=== PATIENT | female | born 1940 | race Caucasian/White ===

== ENCOUNTER 2017-09-01 18:49 | Inpatient (IN) | payer BC, OTHER ==
[2017-09-01 19:10] VITALS: BMI 18.5
--- NOTE | 2017-09-01 19:53 | PDOC ---
History of Present Illness - General Chief Complaint: Injury Stated Complaint: FALL Time Seen by Provider: 09/01/17 19:44 History Source: Patient Exam Limitations: No Limitations - History of Present Illness Initial Comments: 09/01/17 19:47 Patient is a 77-year-old female with history of hypertension, HLD, complaining of left hip pain since prior to presentation. Patient states she was bending over to put out her cigarette and slipped on ice on the sidewalk and twisted her left hip and then fell on the left hip. Since then she has been unable to walk. States she has 10 over 10 sharp pain with movement of the left leg. There was no head strike, no loss of consciousness. PMD: Dr. Camarena PMHX: as above PSOCHX: (+) cig GENERAL/CONSTITUTIONAL: [No fever or chills. No weakness. No weight change.] HEAD, EYES, EARS, NOSE AND THROAT: [No change in vision. No ear pain or discharge. No sore throat.] CARDIOVASCULAR: [No chest pain or shortness of breath.] RESPIRATORY: [No cough, wheezing, or hemoptysis.] GASTROINTESTINAL: [No nausea, vomiting, diarrhea or constipation. No rectal bleeding.] GENITOURINARY: [No dysuria, frequency, or change in urination.] MUSCULOSKELETAL: [No joint or muscle swelling or pain. No neck or back pain.] SKIN AND BREASTS: [No rash or easy bruising.] NEUROLOGIC: [No headache, vertigo, loss of consciousness, or loss of sensation, (+) tremors.] PSYCHIATRIC: [No depression or anxiety.] ENDOCRINE: [No increased thirst. No abnormal weight change.] HEMATOLOGIC/LYMPHATIC: [No anemia, easy bleeding, or history of blood clots.] ALLERGIC/IMMUNOLOGIC: [No hives or skin allergy. No latex allergy.] GENERAL: [The patient is awake, alert, and fully oriented, in no acute distress. ] HEAD: [Normal with no signs of trauma.] EYES: [Pupils equal, round and reactive to light, extraocular movements intact, sclera anicteric, conjunctiva clear.] ENT: [Ears normal, nares patent, oropharynx clear without exudates. Moist mucous membranes.] NECK: [Normal range of motion, supple without lymphadenopathy, JVD, or masses.] LUNGS: [Breath sounds equal, clear to auscultation bilaterally. No wheezes, and no crackles.] HEART: [Regular rate and rhythm, normal S1 and S2 without murmur, rub.] ABDOMEN: [Soft, nontender, normoactive bowel sounds. No guarding, no rebound. No masses.] EXTREMITIES: decreased range of motion left lower ext, rotated left lower ext, tenderness to left groin and hip, no edema. No clubbing or cyanosis. No cords, erythema, or tenderness.] NEUROLOGICAL: [Cranial nerves II through XII grossly intact. Normal speech, (+ ) tremors.] PSYCH: [Normal mood, normal affect.] SKIN: [Warm, Dry, normal turgor, no rashes or lesions noted.] 09/01/17 19:53 Past History - Past Medical History Allergies/Adverse Reactions: Allergies Allergy/AdvReac Type Severity Reaction Status Date / Time alcohol Allergy Verified 09/01/17 19:04 Antihistamines - Alkylamine Allergy Verified 09/01/17 19:04 Antihistamines - Ethanolamine Allergy Verified 09/01/17 19:04 Antihistamines - Allergy Verified 09/01/17 19:04 Ethylenediamine Antihistamines - Piperazine Allergy Verified 09/01/17 19:04 cranberry Allergy Verified 09/01/17 19:04 Home Medications: Ambulatory Orders Amlodipine Besylate 5 mg PO DAILY 09/01/17 Olmesartan/Hydrochlorothiazide [Benicar Hct 20-12.5MG Tab] 1 tab PO DAILY Rosuvastatin Calcium [Crestor] 5 mg PO HS 09/01/17 COPD: No HTN: Yes Hypercholesterolemia: Yes - Suicide/Smoking/Psychosocial Hx Smoking History: Current every day smoker Number of Cigarettes Smoked Daily: 10 Information on smoking cessation initiated: No *Physical Exam - Vital Signs Last Vital Signs Temp Pulse Resp BP Pulse Ox 98.2 F 63 16 122/57 97 09/01/17 19:00 09/01/17 19:00 09/01/17 19:00 09/01/17 19:00 09/01/17 19:00 ED Treatment Course - LABORATORY CBC & Chemistry Diagram: 09/01/17 20:58 09/01/17 20:58 - RADIOLOGY Radiology Studies Ordered: Category Date Time Status HIP & PELVIS-LEFT [RAD] Stat Radiology 09/01/17 19:45 Ordered Medical Decision Making - Medical Decision Making 09/01/17 19:51 Patient is a 77-year-old female with history of hypertension, HLD, complaining of left hip pain since prior to presentation. xray left hip and pelvis *DC/Admit/Observation/Transfer Diagnosis at time of Disposition: Hip fracture - Discharge Dispostion Condition at time of disposition: Stable Admit: Yes - Referrals - Patient Instructions - Post Discharge Activity
[2017-09-01 21:08] LABS: BASO % 0.8 % (0-2.0); EOS % 0.4 % (0-4.5); HEMATOCRIT 34.7 % (32.4-45.2); HEMOGLOBIN 11.4 GM/dL (10.7-15.3); LYMPH % 7.8 % (8-40); MCH 29.5 pg (25.7-33.7); MCHC 32.9 g/dl (32.0-36.0); MEAN CELL VOLUME 89.6 fl (80-96); MEAN PLT VOLUME 9.8 fl (7.5-11.1); MONO % 4.5 % (3.8-10.2); NEUT % 86.5 % (42.8-82.8); PLATELET COUNT 203 K/MM3 (134-434); RBC 3.88 M/mm3 (3.60-5.2); RDW 13.7 % (11.6-15.6); WHITE BLOOD COUNT 13.9 K/mm3 (4.0-10.0)
[2017-09-01 21:22] LABS: INR 0.93 (0.82-1.09); PROTHROMBIN TIME (PATIENT) 10.5 SEC (9.98-11.88)
[2017-09-01 21:43] LABS: ALBUMIN 3.5 g/dl (3.4-5.0); ANION GAP 7 (8-16); BLOOD UREA NITROGEN 36 mg/dL (7-18); CALCIUM 8.5 mg/dL (8.5-10.1); CHLORIDE 105 mmol/L (98-107); CO2 29 mmol/L (21-32); GLUCOSE,RANDOM 118 mg/dL (74-106); POTASSIUM 3.8 mmol/L (3.5-5.1); SGOT/AST 12 U/L (15-37); SGPT/ALT 17 U/L (12-78); SODIUM 141 mmol/L (136-145)
[2017-09-01 21:45] LABS: ALK PHOS 86 U/L (45-117); BILIRUBIN,TOTAL 0.4 mg/dL (0.2-1.0); CREATININE 1.2 mg/dL (0.55-1.02); TOT PROT 6.3 g/dl (6.4-8.2)
[2017-09-01] MEDS ORDERED: ACETAMINOPHEN 325 MG TABLET (FP) PO PRN (22:02)
[2017-09-01] MEDS ORDERED: ONDANSETRON 4 MG/2 ML VIAL IVPB PRN (22:02)
[2017-09-01] MEDS ORDERED: morphine CARPU-JECT 8 MG/1 ML DISP.SYRIN IVPUSH PRN (22:02)
[2017-09-02] MEDS ORDERED: VALSARTAN 80 MG TABLET (UD) PO SCH (10:00)
[2017-09-02] MEDS ORDERED: amLODIPine BESYLATE 2.5 MG TABLET (FP) PO SCH (10:00)
[2017-09-02] MEDS ORDERED: amLODIPine BESYLATE 5 MG TABLET (FP) ONE (10:09)
--- NOTE | 2017-09-02 10:17 | PN ---
Progress Note (short form) - Note Progress Note: Ortho consult dictated. Can proceed to OR when medically optimized. Time is available tonight. Will make NPO for now.
[2017-09-02 10:44] LABS: HEMATOCRIT 34.2 % (32.4-45.2); HEMOGLOBIN 10.9 GM/dL (10.7-15.3); MCH 28.6 pg (25.7-33.7); MCHC 31.7 g/dl (32.0-36.0); MEAN CELL VOLUME 90.3 fl (80-96); MEAN PLT VOLUME 10.1 fl (7.5-11.1); PLATELET COUNT 180 K/MM3 (134-434); RBC 3.79 M/mm3 (3.60-5.2); RDW 13.9 % (11.6-15.6)
[2017-09-02 10:48] LABS: ALBUMIN 3.5 g/dl (3.4-5.0); ALK PHOS 86 U/L (45-117); ANION GAP 11 (8-16); BILIRUBIN,TOTAL 0.8 mg/dL (0.2-1.0); BLOOD UREA NITROGEN 28 mg/dL (7-18); CALCIUM 9.3 mg/dL (8.5-10.1); CHLORIDE 106 mmol/L (98-107); CO2 26 mmol/L (21-32); CREATININE 1.1 mg/dL (0.55-1.02); GLUCOSE,RANDOM 115 mg/dL (74-106); POTASSIUM 4.3 mmol/L (3.5-5.1); SGOT/AST 10 U/L (15-37); SGPT/ALT 19 U/L (12-78); SODIUM 143 mmol/L (136-145); TOT PROT 6.5 g/dl (6.4-8.2)
--- NOTE | 2017-09-02 12:10 | CONS ---
DATE OF CONSULTATION/ DATE OF DICTATION: 09/01/2017 at 9:00 p.m. CHIEF COMPLAINT: Left hip pain. HISTORY OF PRESENT ILLNESS: This is a 77-year-old woman who was bending over and was out smoking a cigarette and lost her balance on some ice and fell onto her left hip. She has been unable to walk since then. She has pain in the hip area. She denies any pain elsewhere. She denies any radiating pain, numbness, or tingling. She denies any pain there prior to this injury. PAST MEDICAL HISTORY: Significant for hypertension, hyperlipidemia, COPD. MEDICATIONS: Reviewed as in chart. ALLERGIES: Include ANTIHISTAMINES. PHYSICAL EXAMINATION: General: This is an elderly female seen in the emergency room stretcher in no acute distress. She is alert and oriented x3. She has slightly rapid respirations. Vital signs: She is afebrile, and vital signs are stable. Extremities: Examination of the left lower extremity demonstrates shortening of external rotation. There is no tenderness throughout the knee. There is no tenderness about the ankle. The hip is tender to palpation. The foot demonstrates sensation intact to light touch. She has a 1+ DP pulse. EHL, FHL, tibialis anterior, gastric, and soleus are intact. IMAGING: Radiographs are reviewed demonstrating a displaced intertrochanteric hip fracture with moderate hip degenerative change. Radiographs of the elbow and shoulder are reviewed, as well. The shoulder views are somewhat limited due to the angulation. However no gross fracture is identified. ASSESSMENT: Left intertrochanteric hip fracture. PLAN: I reviewed todays findings with the patient and her coordinator of placement in the emergency department. We discussed that she had displaced fracture of the left hip. While she does have some underlying pulmonary disease, I do believe that the best option for her is surgical fixation. We discussed the option of nonoperative care which involves prolonged bed rest and possibly permanent loss of ambulatory function. We discussed the high likelihood of malunion or nonunion should she be treated nonoperatively. Alternatively, we discussed the recommended treatment, which is operative treatment. This would involve placement of a nail into the femur to stabilize the fracture. We discussed that the nail does not heal the fracture. Rather, it creates an environment where the fracture can heal properly. Surgery involves risks including bleeding, infection, neurovascular injury, need for further surgery, postoperative pain and stiffness, nonunion, malunion, hardware failure, or cutout. We discussed that patients with pulmonary disease are at risk of complications during the procedure. Medical complications could include heart attack, stroke, DVT, PE, respiratory failure, need for permanent ventilatory support, and . We discussed that there was no way to eliminate her pulmonary disease and mobilization is probably the best way to limit her chance of developing pulmonary complications as a result of this injury. We discussed the use of perioperative antibiotic and DVT prophylaxis. We discussed the rehabilitation protocol and likely need for a stay in the rehabilitation facility. I addressed all the patients questions. She voiced understanding and is likely to proceed. She will be scheduled for surgery as soon as she is medically optimized. NUPUR KUMAR M.D. [id number]
--- NOTE | 2017-09-02 13:10 | EKG ---
Test Reason : Blood Pressure : / mmHG Vent. Rate : 068 BPM Atrial Rate : 068 BPM P-R Int : 160 ms QRS Dur : 120 ms QT Int : 424 ms P-R-T Axes : 061 -32 048 degrees QTc Int : 450 ms POOR DATA QUALITY, INTERPRETATION MAY BE ADVERSELY AFFECTED SINUS RHYTHM WITH PREMATURE ATRIAL COMPLEXES LEFT AXIS DEVIATION RIGHT BUNDLE BRANCH BLOCK ABNORMAL ECG WHEN COMPARED WITH ECG OF 16-SEP-2010 17:52, PREMATURE ATRIAL COMPLEXES ARE NOW PRESENT RIGHT BUNDLE BRANCH BLOCK IS NOW PRESENT Confirmed by MD Guanaco, Lai ([id number]) on 09/02/2017 1:09:47 PM Referred By: Confirmed By:Lai Blanc MD
--- NOTE | 2017-09-02 15:31 | CON.CARD ---
Cardiology Consult (text) - Consultation Consultation Note: CC: pre-op clearance 77 yo smoker with h/o hypertension, HLD, who presents s/p mechanical fall noted to have fracture needing surgical repair. complaining of left hip pain post fall. mechanical fall, no dizziness. currently unable to walk. no prior h/o cad, chf, dm, ckd, tia/cva. can walk slowly up one flight of stairs (limited by oa). sedentary. no orthopnea, pnd, cp, sob, palps, dizziness, bleeding, transient neurologic sx' s. PMHX/pshx: per hpi PSOCHX: (+) cig fam hx: no premature cad ros: per hpi, no f/c/s, n/v/d, h/a, visual disturbances, rashes, cough, congestion. Ambulatory Orders Amlodipine Besylate 5 mg PO DAILY 09/01/17 Olmesartan/Hydrochlorothiazide [Benicar Hct 20-12.5MG Tab] 1 tab PO DAILY Rosuvastatin Calcium [Crestor] 5 mg PO HS 09/01/17 Current Medications Acetaminophen (Tylenol -) 650 mg PO Q6H PRN PRN Reason: FEVER OR PAIN Amlodipine Besylate (Norvasc -) 2.5 mg PO DAILY [facility] Last Admin: 09/02/17 10:07 Dose: 2.5 mg Morphine Sulfate (Morphine Sulfate) 2 mg IVPUSH Q6H PRN PRN Reason: PAIN Ondansetron HCl (Zofran Injection) 8 mg IVPB Q6H PRN PRN Reason: NAUSEA Valsartan (Diovan -) 80 mg PO DAILY [facility] Last Admin: 09/02/17 10:07 Dose: 80 mg Vital Signs - 24 hr 09/01/17 09/02/17 19:00 04:09 Temperature 98.2 F Pulse Rate 63 Pulse Rate [ 68 Right Apical] Respiratory 16 18 Rate Blood Pressure 122/57 Blood Pressure 125/62 [Left Arm] O2 Sat by Pulse 97 96 Oximetry (%) Intake & Output 08/31/17 09/01/17 09/02/17 09/03/17 07:59 07:59 07:59 07:59 Weight 95 lb nad, calm jvd flat, neck supple ctab, nl effort rrr nl s1, s2 no mrg. nd pmi + bs soft nt nd ext without e/c/c + dp/pt no carotid bruit aaox3 no jaundice, diaphoresis CBC, BMP 09/02/17 10:00 09/02/17 10:00 Laboratory Tests 09/01/17 09/01/17 09/02/17 20:58 20:58 10:00 INR 0.93 Creatinine 1.2 H Total Bilirubin 0.8 D AST 10 L ALT 19 Alkaline Phosphatase 86 Albumin 3.5 ekg: sr. lad. rbbb. diminished r wave voltages in lateral leads (similar on priors). carotid u/s: mod sized plaque at rt common carotid. small-mod plaque at left common carotid. no sig stenosis. per pmd, recent office echo wnl. 77 yo smoker with h/o hypertension, HLD, who presents s/p mechanical fall noted to have fracture needing surgical repair. pre-op clearance - Stable from CV perspective. No further testing needed prior to intervention. based on rcri and functional status, patient with estimated low-intermediate barbara-operative CV risk. patient counseled on risk. htn - stable, will monitor on current meds barbara-operatively. hl - con't home statin carotid atherosclerosis - con't statin. Would benefit from long-term asa therapy as outpatient. tobacco - cessation counseling.
--- NOTE | 2017-09-02 15:51 | HP ---
Admitting History and Physical - Primary Care Physician PCP: Britney Camarena - Admission Chief Complaint: S/P FALL LEFT HIP FRACTURE History of Present Illness: HISTORY OF HTN, LIPIDEMIA, OSTEOPOROSIS, TOBACCO SMOKER FOR OVER 50 YEARS. SLIPPED ON ICE AND FELL FELT IMMEDIATE PAIN LEFT SIDED. NO LOC. History Source: Patient Limitations to Obtaining History: No Limitations - Past Medical History Cardiovascular: Yes: HTN, Hyperlipdemia Musculoskeletal: Yes: Other - Smoking History Smoking history: Current every day smoker Aproximately how many cigarettes per day: 10 Home Medications - Allergies Allergies/Adverse Reactions: Allergies Allergy/AdvReac Type Severity Reaction Status Date / Time alcohol Allergy Verified 09/01/17 19:04 Antihistamines - Alkylamine Allergy Verified 09/01/17 19:04 Antihistamines - Ethanolamine Allergy Verified 09/01/17 19:04 Antihistamines - Allergy Verified 09/01/17 19:04 Ethylenediamine Antihistamines - Piperazine Allergy Verified 09/01/17 19:04 cranberry Allergy Verified 09/01/17 19:04 - Home Medications Home Medications: Ambulatory Orders Amlodipine Besylate 5 mg PO DAILY 09/01/17 Olmesartan/Hydrochlorothiazide [Benicar Hct 20-12.5MG Tab] 1 tab PO DAILY Rosuvastatin Calcium [Crestor] 5 mg PO HS 09/01/17 Review of Systems - Review of Systems Constitutional: reports: Weakness Eyes: reports: No Symptoms HENT: reports: No Symptoms Neck: reports: No Symptoms Cardiovascular: reports: No Symptoms Respiratory: reports: No Symptoms Gastrointestinal: reports: No Symptoms Genitourinary: reports: No Symptoms Musculoskeletal: reports: Extremity Pain Integumentary: reports: No Symptoms Neurological: reports: No Symptoms Endocrine: reports: No Symptoms Hematology/Lymphatic: reports: No Symptoms Psychiatric: reports: No Symptoms Physical Examination Vital Signs: Vital Signs Temperature 98.2 F 09/01/17 19:00 Pulse Rate 68 09/02/17 04:09 Respiratory Rate 18 09/02/17 04:09 Blood Pressure 125/62 09/02/17 04:09 O2 Sat by Pulse Oximetry (%) 96 09/02/17 04:09 Constitutional: Yes: Moderate Distress Eyes: Yes: WNL HENT: Yes: WNL Neck: Yes: WNL Cardiovascular: Yes: WNL Respiratory: Yes: WNL Gastrointestinal: Yes: WNL Renal/: Yes: WNL Musculoskeletal: Yes: Back Pain, Muscle Weakness Extremities: Yes: Deformity Edema: No Peripheral Pulses WNL: Yes Integumentary: Yes: WNL Wound/Incision: Yes: Clean/Dry Neurological: Yes: WNL ...Motor Strength: LLE Psychiatric: Yes: WNL Labs: CBC, BMP 09/02/17 10:00 09/02/17 10:00 Imaging - Results X-ray: Report Reviewed Problem List - Problems (1) Hypertension Code(s): I10 - ESSENTIAL (PRIMARY) HYPERTENSION Qualifiers: Hypertension type: essential hypertension Qualified Code(s): I10 - Essential (primary) hypertension (2) Lipidemia Code(s): E78.5 - HYPERLIPIDEMIA, UNSPECIFIED (3) Tobacco dependence due to cigarettes Code(s): F17.210 - NICOTINE DEPENDENCE, CIGARETTES, UNCOMPLICATED (4) Hip fracture Code(s): S72.009A - FRACTURE OF UNSP PART OF NECK OF UNSP FEMUR, INIT Qualifiers: Laterality: left Assessment/Plan MEDICALLY CLEARED FOR LEFT HIP GAMMA NAIL SURGERY REPAIR OF FRACTURE CAROTID DOPPLER NO SERIOUS ABNORMALITY ECHO 2017 NO ACUTE CHANGES IN MY OFFICE WITH NORMAL EF% AC SNF AND PT CARDIO EVAL APPRECIATED
[2017-09-02] MEDS ORDERED: BUPIVACAINE HCL/PF 0.5% (5MG/ML) 10 ML VIAL ONE (16:40)
[2017-09-02] MEDS ORDERED: MIDAZOLAM HCL 2 MG/2 ML SINGLE DOSE VIAL ONE (17:14)
[2017-09-02] MEDS ORDERED: ceFAZolin SODIUM 1 GM VIAL IVPB ONE (17:30)
[2017-09-02] MEDS ORDERED: ePHEDrine SULFATE 50 MG/1 ML AMPULE ONE (17:39)
[2017-09-02] MEDS ORDERED: oxyCODONE HCL 5 MG TABLET PO PRN (18:38)
[2017-09-02] MEDS ORDERED: ONDANSETRON 4 MG/2 ML VIAL IVPUSH PRN ×2 (18:38→18:59)
[2017-09-02] MEDS ORDERED: PROMETHAZINE HCL 25 MG/1 ML VIAL IVPUSH PRN (18:38)
[2017-09-02] MEDS ORDERED: LACTATED RINGERS SOLUTION 1,000 ML IV SCH (18:45)
[2017-09-02] MEDS ORDERED: morphine CARPU-JECT 10 MG/1 ML DISP.SYRIN IVPUSH PRN (18:59)
[2017-09-02] MEDS ORDERED: ONDANSETRON 4 MG/2 ML VIAL IVPB PRN (18:59)
[2017-09-02] MEDS ORDERED: CEFAZOLIN 1 GM PUSH 1 GM/10 ML DISP.SYRIN IVPUSH SCH (19:30)
--- NOTE | 2017-09-02 19:33 | OP ---
Operative Note - Note: Operative Date: 09/02/17 Pre-Operative Diagnosis: left IT fracture Operation: left hip intramedullary nail Implants: brenda gamma 3 [id number] with [id number] proximal lag screw and 32.5x5mm distal locking screw Post-Operative Diagnosis: Same as Pre-op Surgeon: Davion Krueger Supervisor Pipe Finishing: Royal Hall Anesthesiologist/RAMP AGENT: Jesus Grayson Anesthesia: Spinal Estimated Blood Loss (mls): 100 Operative Report Dictated: Yes
--- NOTE | 2017-09-02 20:33 | OP ---
DATE OF OPERATION: 09/02/2017 PREOPERATIVE DIAGNOSIS: Left intertrochanteric hip fracture. POSTOPERATIVE DIAGNOSIS: Left intertrochanteric hip fracture. PROCEDURE: Left hip intramedullary nail. SURGEON: Davion Krueger MD WEB DEVELOPER PROGRAMMER: Royal Hall, physician assistant account manager, whose skillful assistance was necessary for the safe and timely performance of this procedure. Mr. Hall was able to assist in limb positioning, retraction, assist in fracture reduction, as well as insertion of orthopedic procedure hardware. ANESTHESIA: Spinal. POSTOPERATIVE CONDITION: Stable. COMPLICATIONS: None. IMPLANTS: Edon Gamma nail 10 mm, right, 170, 125-degree, with a 85-mm proximal lag screw and a 32.5-mm x 5 distal locking screw. BLOOD LOSS: 100 mL. INDICATIONS: This is a pleasant woman who suffered a slip and fall. She was found to have an intertrochanteric hip fracture. Treatment options including nonoperative versus operative care were discussed. Operative risks were discussed in detail, including bleeding, infection, neurovascular injury, need for further surgery, postoperative pain and stiffness, nonunion, malunion, hardware failure or cutout. We discussed medical risks such as heart attack, stroke, DVT, PE, or . We reviewed the postoperative rehabilitation protocol. We discussed the use of perioperative DVT and antibiotic prophylaxis. I addressed all the patient's questions. She voiced understanding and elected to proceed. PROCEDURE PERFORMED: The patient was brought to the operating room where spinal anesthesia was administered. The patient was then placed onto the fracture table. We were careful to pad all the bony prominences. The left lower extremity was then prepped and draped in usual sterile fashion, after placing the leg into the position of traction, adduction and internal rotation. Preoperative fluoroscopy demonstrated satisfactory reduction. The patient was now prepped and draped. The usual time-out procedure was performed. A preoperative dose of antibiotics was given. At this point, an incision was planned out over the greater trochanter. A stab wound was made using a 10 blade. The guide wire was now placed down to the tip of the greater trochanter, which was fractured and allowed for easy advancement of the guide wire into the femoral canal. Guide wire placement was confirmed fluoroscopically in two planes. The incision was now opened up to allow entrance of the open reamer. The open reamer was now passed down to the level of the lesser trochanter. The guide wire and open reamer were now removed. The nail was then inserted into the femoral canal. The nail placement was confirmed fluoroscopically. The trocar was now inserted through the jig and an incision was made through the skin. The trocar was now inserted down to the level of the lateral femoral cortex. The guide wire was now inserted through the center of the femoral neck into the center of the femoral head. This was confirmed fluoroscopically in two planes. The guide wire was then measured and then overreamed to a depth of 85 mm. The proximal lag screw was now inserted. Again, position was confirmed fluoroscopically in two planes. The set screw was now inserted, its position checked and then backed off a quarter turn to allow for compression along the proximal lag screw. The proximal trocar was now removed. The distal trocar was inserted through the jig and again through a small incision in the skin. The trocar was again placed down to the bone. The distal locking screw was drilled in the static position. The screw was then measured and then inserted. At this point, the entire construct was examined again fluoroscopically. Both fracture reduction and hardware placement were satisfactory. The wounds were now irrigated. The deep tissue, including the fascia, was closed with 0 Vicryl. The subcutaneous tissue was closed using 2-0 Vicryl. The skin was closed using 3-0 nylon. Sterile dressings were placed. The patient was transferred to the recovery room in stable condition. Deanna [id number]
[2017-09-02] MEDS: CALCIUM 500MG/VIT-D 200 UNITS COMBO TABLET (FP) PO SCH (22:05)
[2017-09-02] MEDS: oxyCODONE HCL 5 MG TABLET PO PRN (22:30)
[2017-09-03] MEDS: CEFAZOLIN 1 GM PUSH 1 GM/10 ML DISP.SYRIN IVPUSH SCH ×2 (01:48→11:44)
[2017-09-03 08:52] LABS: HEMATOCRIT 25.3 % (32.4-45.2); HEMOGLOBIN 8.4 GM/dL (10.7-15.3); MCH 29.6 pg (25.7-33.7); MCHC 33.1 g/dl (32.0-36.0); MEAN CELL VOLUME 89.5 fl (80-96); MEAN PLT VOLUME 9.9 fl (7.5-11.1); PLATELET COUNT 137 K/MM3 (134-434); RBC 2.83 M/mm3 (3.60-5.2); RDW 13.7 % (11.6-15.6); WHITE BLOOD COUNT 10.2 K/mm3 (4.0-10.0)
[2017-09-03 09:17] LABS: ANION GAP 10 (8-16); BLOOD UREA NITROGEN 17 mg/dL (7-18); CALCIUM 8.8 mg/dL (8.5-10.1); CHLORIDE 103 mmol/L (98-107); CO2 29 mmol/L (21-32); GLUCOSE,RANDOM 111 mg/dL (74-106); MAGNESIUM 1.7 mg/dL (1.8-2.4); POTASSIUM 3.8 mmol/L (3.5-5.1); SODIUM 142 mmol/L (136-145)
[2017-09-03 09:19] LABS: CREATININE 0.8 mg/dL (0.55-1.02)
[2017-09-03] MEDS: amLODIPine BESYLATE 2.5 MG TABLET (FP) PO SCH (09:28)
[2017-09-03] MEDS: ACETAMINOPHEN 325 MG TABLET (FP) PO PRN ×2 (09:29→18:53)
[2017-09-03] MEDS: VALSARTAN 80 MG TABLET (UD) PO SCH (09:29)
[2017-09-03] MEDS: CALCIUM 500MG/VIT-D 200 UNITS COMBO TABLET (FP) PO SCH ×2 (09:29→21:19)
[2017-09-03] MEDS: oxyCODONE HCL 5 MG TABLET PO PRN (09:30)
--- NOTE | 2017-09-03 09:44 | PN ---
Progress Note (short form) - Note Progress Note: Anesthesia post op note POD#1, S/p left distal femur ORIF under Spinal. Pat seen and examined. VSS. No apparent post anesthesia complications. Signed off.
--- NOTE | 2017-09-03 10:07 | PN ---
Progress Note (short form) - Note Progress Note: Pt lying in bed. Pain controlled w meds. Last Vital Signs Temp Pulse Resp BP Pulse Ox 99.6 F 84 18 113/57 99 09/03/17 06:00 09/03/17 06:00 09/03/17 06:00 09/03/17 06:00 09/02/17 22:00 LLE dressings cdi calves soft nt ehl fhl ta g s intact sens int to LT 2+ dp Abnormal Lab Results 09/02/17 09/02/17 09/03/17 10:00 10:00 06:00 WBC 12.0 H 10.2 H RBC 2.83 L D Hgb 8.4 L D Hct 25.3 L D MCHC 31.7 L BUN 28 H D Creatinine 1.1 H Random Glucose 115 H Magnesium AST 10 L 09/03/17 06:00 WBC RBC Hgb Hct MCHC BUN Creatinine Random Glucose 111 H Magnesium 1.7 L AST A/p: POD 1 L femoral nail -pain control -dvt proph -oob/rehab -f/u CBC
--- NOTE | 2017-09-03 16:11 | PN ---
Progress Note, Physician Chief Complaint: awake alert pod#1 - Current Medication List Current Medications: Active Medications Acetaminophen (Tylenol -) 650 mg PO Q6H PRN PRN Reason: FEVER OR PAIN Last Admin: 09/03/17 09:29 Dose: 650 mg Amlodipine Besylate (Norvasc -) 2.5 mg PO DAILY [facility] Last Admin: 09/03/17 09:28 Dose: 2.5 mg Calcium Carbonate/Cholecalciferol (Os-Pedro 500+D -) 1 tab PO BID [facility] Last Admin: 09/03/17 09:29 Dose: 1 tab Enoxaparin Sodium (Lovenox -) 40 mg SQ DAILY [facility] Morphine Sulfate (Morphine Injection -) 2 mg IVPUSH Q6H PRN PRN Reason: PAIN Ondansetron HCl (Zofran Injection) 8 mg IVPB Q6H PRN PRN Reason: NAUSEA Ondansetron HCl (Zofran Injection) 4 mg IVPUSH Q6H PRN PRN Reason: NAUSEA AND/OR VOMITING Oxycodone HCl (Roxicodone -) 5 mg PO Q4H PRN PRN Reason: MILD PAIN Stop: 09/03/17 18:37 Last Admin: 09/03/17 09:30 Dose: 5 mg Valsartan (Diovan -) 80 mg PO DAILY [facility] Last Admin: 09/03/17 09:29 Dose: 80 mg - Objective Vital Signs: Vital Signs Temperature 97.9 F 09/03/17 14:44 Pulse Rate 98 H 09/03/17 14:44 Respiratory Rate 18 09/03/17 14:44 Blood Pressure 101/63 09/03/17 14:44 O2 Sat by Pulse Oximetry (%) 95 09/03/17 09:00 Constitutional: Yes: Mild Distress Eyes: Yes: WNL HENT: Yes: WNL Neck: Yes: WNL Cardiovascular: Yes: WNL Respiratory: Yes: Diminished, On Nasal O2 Gastrointestinal: Yes: WNL Genitourinary: Yes: WNL Musculoskeletal: Yes: Back Pain, Muscle Weakness Extremities: Yes: WNL Edema: No Peripheral Pulses WNL: Yes Integumentary: Yes: WNL Wound/Incision: Yes: Clean/Dry Neurological: Yes: WNL ...Motor Strength: LLE Psychiatric: Yes: WNL Labs: CBC, BMP 09/03/17 06:00 09/03/17 06:00 INR, PTT INR 0.93 (0.82-1.09) 09/01/17 20:58 Problem List - Problems (1) Hypertension Code(s): I10 - ESSENTIAL (PRIMARY) HYPERTENSION Qualifiers: Hypertension type: essential hypertension Qualified Code(s): I10 - Essential (primary) hypertension (2) Lipidemia Code(s): E78.5 - HYPERLIPIDEMIA, UNSPECIFIED (3) Tobacco dependence due to cigarettes Code(s): F17.210 - NICOTINE DEPENDENCE, CIGARETTES, UNCOMPLICATED (4) Hip fracture Code(s): S72.009A - FRACTURE OF UNSP PART OF NECK OF UNSP FEMUR, INIT Qualifiers: Laterality: left Assessment/Plan dvt prophylaxis pod#1 sitting up in chair PT yas [facility] for rehab d/w patient pain control
[2017-09-03] MEDS ORDERED: MAGNESIUM SULF 50% (8.12 MEQ/2 ML-1 GM VIAL) IVPB ONE (16:15)
[2017-09-03] MEDS: DOCUSATE SODIUM 100 MG CAPSULE (FP) PO SCH (17:15)
[2017-09-03] MEDS: FERROUS SO4 325 MG TABLET (FP) PO SCH (17:15)
[2017-09-03 18:35] LABS: HEMATOCRIT 26.1 % (32.4-45.2); HEMOGLOBIN 8.5 GM/dL (10.7-15.3); MCH 29.4 pg (25.7-33.7); MCHC 32.7 g/dl (32.0-36.0); MEAN PLT VOLUME 10.6 fl (7.5-11.1); PLATELET COUNT 154 K/MM3 (134-434); RDW 13.7 % (11.6-15.6); WHITE BLOOD COUNT 13.1 K/mm3 (4.0-10.0)
[2017-09-03] MEDS: ENOXAPARIN NA (PORCINE) 40 MG/0.4 ML DISP.SYRIN SQ SCH (19:50)
--- NOTE | 2017-09-03 21:40 | PN ---
Progress Note (short form) - Note Progress Note: CC: pre-op clearance Current Medications Acetaminophen (Tylenol -) 650 mg PO Q6H PRN PRN Reason: FEVER OR PAIN Last Admin: 09/03/17 18:53 Dose: 650 mg Amlodipine Besylate (Norvasc -) 2.5 mg PO DAILY [facility] Last Admin: 09/03/17 09:28 Dose: 2.5 mg Calcium Carbonate/Cholecalciferol (Os-Pedro 500+D -) 1 tab PO BID [facility] Last Admin: 09/03/17 21:19 Dose: 1 tab Docusate Sodium (Colace -) 100 mg PO DAILY [facility] Last Admin: 09/03/17 17:15 Dose: 100 mg Enoxaparin Sodium (Lovenox -) 40 mg SQ DAILY [facility] Last Admin: 09/03/17 19:50 Dose: 40 mg Ferrous Sulfate (Feosol -) 325 mg PO DAILY@0800 [facility] Last Admin: 09/03/17 17:15 Dose: 325 mg Morphine Sulfate (Morphine Injection -) 2 mg IVPUSH Q6H PRN PRN Reason: PAIN Ondansetron HCl (Zofran Injection) 8 mg IVPB Q6H PRN PRN Reason: NAUSEA Ondansetron HCl (Zofran Injection) 4 mg IVPUSH Q6H PRN PRN Reason: NAUSEA AND/OR VOMITING Valsartan (Diovan -) 80 mg PO DAILY [facility] Last Admin: 09/03/17 09:29 Dose: 80 mg Vital Signs - 24 hr 09/02/17 09/03/17 09/03/17 22:00 02:00 06:00 Temperature 98.8 F 98.7 F 99.6 F Pulse Rate 89 102 H 84 Respiratory 18 20 18 Rate Blood Pressure 136/89 113/57 O2 Sat by Pulse 99 Oximetry (%) 09/03/17 09/03/17 09/03/17 09:00 10:00 14:44 Temperature 99.4 F 97.9 F Pulse Rate 103 H 98 H Respiratory 18 18 18 Rate Blood Pressure 114/60 101/63 O2 Sat by Pulse 95 Oximetry (%) 09/03/17 19:56 Temperature 98.9 F Pulse Rate 87 Respiratory 19 Rate Blood Pressure 113/51 O2 Sat by Pulse Oximetry (%) Intake & Output 09/01/17 09/02/17 09/03/1717 07:59 07:59 07:59 07:59 Intake Total 2035 400 Output Total 450 Balance 1585 400 Weight 95 lb 95 lb nad, calm jvd flat, neck supple ctab, nl effort rrr nl s1, s2 no mrg. nd pmi + bs soft nt nd ext without e/c/c + dp/pt no carotid bruit aaox3 no jaundice, diaphoresis CBC, BMP 09/03/17 17:35 09/03/17 06:00 ekg: sr. lad. rbbb. diminished r wave voltages in lateral leads (similar on priors). carotid u/s: mod sized plaque at rt common carotid. small-mod plaque at left common carotid. no sig stenosis. per pmd, recent office echo wnl. 77 yo smoker with h/o hypertension, HLD, who presents s/p mechanical fall noted to have fracture needing surgical repair. pre-op clearance - Stable from CV perspective. No further testing needed prior to intervention. based on rcri and functional status, patient with estimated low-intermediate barbara-operative CV risk. patient counseled on risk. htn - stable, will monitor on current meds barbara-operatively. hl - con't home statin carotid atherosclerosis - con't statin. Would benefit from long-term asa therapy as outpatient. tobacco - cessation counseling.
[2017-09-04] MEDS: ACETAMINOPHEN 325 MG TABLET (FP) PO PRN ×2 (05:50→19:52)
[2017-09-04] MEDS ORDERED: ACETAMINOPHEN WITH CODEINE 300MG/30MG TABLET PO PRN (08:09)
[2017-09-04] MEDS: FERROUS SO4 325 MG TABLET (FP) PO SCH (08:13)
[2017-09-04 08:32] LABS: HEMATOCRIT 24.6 % (32.4-45.2); MCH 28.9 pg (25.7-33.7); MCHC 32.4 g/dl (32.0-36.0); MEAN CELL VOLUME 89.2 fl (80-96); MEAN PLT VOLUME 9.8 fl (7.5-11.1); PLATELET COUNT 142 K/MM3 (134-434); RBC 2.76 M/mm3 (3.60-5.2); RDW 13.5 % (11.6-15.6); WHITE BLOOD COUNT 12.1 K/mm3 (4.0-10.0)
[2017-09-04 08:55] LABS: ANION GAP 8 (8-16); BLOOD UREA NITROGEN 16 mg/dL (7-18); CALCIUM 8.8 mg/dL (8.5-10.1); CHLORIDE 100 mmol/L (98-107); CO2 31 mmol/L (21-32); CREATININE 0.9 mg/dL (0.55-1.02); GLUCOSE,RANDOM 102 mg/dL (74-106); MAGNESIUM 2.3 mg/dL (1.8-2.4); POTASSIUM 4.3 mmol/L (3.5-5.1); SODIUM 139 mmol/L (136-145)
[2017-09-04] MEDS: amLODIPine BESYLATE 2.5 MG TABLET (FP) PO SCH (10:11)
[2017-09-04] MEDS: ENOXAPARIN NA (PORCINE) 40 MG/0.4 ML DISP.SYRIN SQ SCH (10:12)
[2017-09-04] MEDS: VALSARTAN 80 MG TABLET (UD) PO SCH (10:12)
[2017-09-04] MEDS: DOCUSATE SODIUM 100 MG CAPSULE (FP) PO SCH (10:12)
[2017-09-04] MEDS: CALCIUM 500MG/VIT-D 200 UNITS COMBO TABLET (FP) PO SCH ×2 (10:12→21:34)
--- NOTE | 2017-09-04 10:20 | PN ---
Progress Note (short form) - Note Progress Note: ID Consult dictated POD #2 gamma nail L femur fracture Low grade temp/ leukocytosis Await cultures OOB. Incentive spirometry Observe off antibiotics
--- NOTE | 2017-09-04 11:20 | PN ---
Progress Note, Physician Chief Complaint: AWAKE ALERT STILL IN PAIN - Current Medication List Current Medications: Active Medications Acetaminophen (Tylenol -) 650 mg PO Q6H PRN PRN Reason: FEVER OR PAIN Last Admin: 09/04/17 05:50 Dose: 650 mg Acetaminophen/Codeine Phosphate (Tylenol # 3 -) 1 tab PO Q4H PRN PRN Reason: FEVER OR PAIN Amlodipine Besylate (Norvasc -) 2.5 mg PO DAILY [facility] Last Admin: 09/04/17 10:11 Dose: Not Given Calcium Carbonate/Cholecalciferol (Os-Pedro 500+D -) 1 tab PO BID [facility] Last Admin: 09/04/17 10:12 Dose: 1 tab Docusate Sodium (Colace -) 100 mg PO DAILY [facility] Last Admin: 09/04/17 10:12 Dose: 100 mg Enoxaparin Sodium (Lovenox -) 40 mg SQ DAILY [facility] Last Admin: 09/04/17 10:12 Dose: 40 mg Ferrous Sulfate (Feosol -) 325 mg PO DAILY@0800 [facility] Last Admin: 09/04/17 08:13 Dose: 325 mg Ondansetron HCl (Zofran Injection) 8 mg IVPB Q6H PRN PRN Reason: NAUSEA Ondansetron HCl (Zofran Injection) 4 mg IVPUSH Q6H PRN PRN Reason: NAUSEA AND/OR VOMITING Valsartan (Diovan -) 80 mg PO DAILY [facility] Last Admin: 09/04/17 10:12 Dose: 80 mg - Objective Vital Signs: Vital Signs Temperature 100.1 F H 09/04/17 05:41 Pulse Rate 86 09/04/17 05:41 Respiratory Rate 18 09/04/17 05:41 Blood Pressure 115/55 09/04/17 05:41 O2 Sat by Pulse Oximetry (%) 95 09/03/17 09:00 Constitutional: Yes: Mild Distress Eyes: Yes: WNL HENT: Yes: WNL Neck: Yes: WNL Cardiovascular: Yes: WNL Respiratory: Yes: WNL Gastrointestinal: Yes: WNL Genitourinary: Yes: WNL Musculoskeletal: Yes: Back Pain, Muscle Weakness Extremities: Yes: Other Edema: No Peripheral Pulses WNL: Yes Integumentary: Yes: WNL Wound/Incision: Yes: Dressing Dry and Intact Neurological: Yes: WNL ...Motor Strength: LLE Psychiatric: Yes: WNL Labs: CBC, BMP 09/04/17 08:05 09/04/17 08:05 INR, PTT INR 0.93 (0.82-1.09) 09/01/17 20:58 Problem List - Problems (1) Hypertension Code(s): I10 - ESSENTIAL (PRIMARY) HYPERTENSION Qualifiers: Hypertension type: essential hypertension Qualified Code(s): I10 - Essential (primary) hypertension (2) Lipidemia Code(s): E78.5 - HYPERLIPIDEMIA, UNSPECIFIED (3) Tobacco dependence due to cigarettes Code(s): F17.210 - NICOTINE DEPENDENCE, CIGARETTES, UNCOMPLICATED (4) Hip fracture Code(s): S72.009A - FRACTURE OF UNSP PART OF NECK OF UNSP FEMUR, INIT Qualifiers: Laterality: left Assessment/Plan TRANSFUSE 1 UNIT PRBC MONITOR H/H POSTOP FEVER CULTURES AND FLU SWAB SENT ID CONSULTED dvt prophylaxis pod#2 sitting up in chair PT yas [facility] for rehab d/w patient pain control
--- NOTE | 2017-09-04 11:51 | CONS ---
INFECTIOUS DISEASE CONSULTATION DATE OF CONSULTATION: DATE OF DICTATION: 09/04/2017 The patient is a 77-year-old female evaluated for postoperative fever. The patient fell, after slipping on snow, on . She sustained trauma to her left hip. She was found to have a left intertrochanteric fracture. She was taken to the operating room on September 02, 2017, where a gamma nail repair was performed. She is now postop day number 2. This morning, she was noted to have fever of 100.1. In addition, her white blood cell count has been elevated. Cultures have been obtained. At the present time, she has no complaints of hip pain at rest. She does have pain with movement and with weight-bearing. She has had a chronic cough. She is a smoker. She denies any chest pain or shortness of breath. No complaints of dysuria, hematuria, vomiting, or diarrhea. PAST MEDICAL HISTORY: Positive for hypertension, hyperlipidemia, chronic obstructive pulmonary disease. ALLERGIES: ANTIHISTAMINES. MEDICATIONS: Include Norvasc, Benicar, Crestor. SOCIAL HISTORY: She is a current smoker. No history of alcohol abuse. SYSTEMS REVIEW: Neurologic: No loss of consciousness, seizure activity, focal weakness. Cardiac: Negative chest pain or palpitations. Respiratory: Positive for cough. Gastrointestinal: Negative vomiting or diarrhea. Genitourinary: Negative for urinary tract infection. LABORATORY DATA: White count 12.1, hematocrit 24.6, platelet count 142. BUN 16, creatinine 0.9. Blood cultures pending. Urinalysis and urine culture pending. Chest x-ray: No acute infiltrate. PHYSICAL EXAMINATION: General: On exam, she is awake and alert. She is supine in bed in no acute distress. Not acutely toxic appearing. Vital signs: Temperature 100.1, blood pressure 115/55, pulse 86 and regular, respirations 18 per minute. Eyes: Sclerae are anicteric. Heart: Heart sounds S1, S2. Lungs: Clear bilaterally. No rhonchi, rales, or wheezing. Abdomen: Soft. No tenderness elicited. No mass, rebound, or rigidity. Extremities: Edema 1+. A surgical dressing is in place on the left hip. IMPRESSION: 1. Postoperative day number 2, left femur fracture repair. 2. Low-grade fever and leukocytosis. Await culture results. Obtain urinalysis and urine culture. Observe off antibiotic therapy. Out of bed to chair. Incentive spirometry. Thank you for the kind referral. JAYSON YU M.D. IRVIN/[id number]
[2017-09-04 12:44] LABS: URINE APPEARANCE SLCLOUDY; URINE BILIRUBIN NEGATIVE (NEGATIVE); URINE BLOOD 3+ (NEGATIVE); URINE COLOR LTYELLOW; URINE GLUCOSE (UA) NEGATIVE (NEGATIVE); URINE KETONE NEGATIVE (NEGATIVE); URINE LEUK ESTERASE NEGATIVE (NEGATIVE); URINE NITRITE NEGATIVE (NEGATIVE); URINE PROTEIN NEGATIVE (NEGATIVE); URINE UROBILINOGEN NEGATIVE mg/dL (0.2-1.0)
[2017-09-04 14:31] LABS: EPI CELLS RARE /HPF (FEW); URINE MUCUS RARE
--- NOTE | 2017-09-04 15:23 | PN ---
Progress Note (short form) - Note Progress Note: Pt lying in bed. Some pain at rest, moreso with ambulation. Last Vital Signs Temp Pulse Resp BP Pulse Ox 99.1 F 93 H 18 86/53 95 09/04/17 14:30 09/04/17 14:30 09/04/17 05:41 09/04/17 14:30 09/03/17 09:00 LLE dressings cdi calves soft nt ehl fhl ta g s intact sens int to LT 2+ dp Abnormal Lab Results 09/03/17 09/04/17 09/04/17 17:35 08:05 08:30 WBC 13.1 H 12.1 H RBC 2.90 L 2.76 L Hgb 8.5 L 8.0 L Hct 26.1 L 24.6 L Urine Blood 3+ H Crossmatch 09/04/17 12:16 WBC RBC Hgb Hct Urine Blood Crossmatch See Detail A/p: POD 2 L femoral nail -pain control, minimize narcotics as much as possible -dvt proph -oob/rehab -f/u CBC after transfusion -pt shows no clinical signs of infection, low grade temp likely secondary to post op inflammation
[2017-09-04] MEDS ORDERED: ENOXAPARIN NA (PORCINE) 40 MG/0.4 ML DISP.SYRIN SQ SCH (19:00)
--- NOTE | 2017-09-04 23:53 | PN ---
Progress Note (short form) - Note Progress Note: Current Medications Acetaminophen (Tylenol -) 650 mg PO Q6H PRN PRN Reason: FEVER OR PAIN Last Admin: 09/04/17 19:52 Dose: 650 mg Acetaminophen/Codeine Phosphate (Tylenol # 3 -) 1 tab PO Q4H PRN PRN Reason: FEVER OR PAIN Amlodipine Besylate (Norvasc -) 2.5 mg PO DAILY [facility] Last Admin: 09/04/17 10:11 Dose: Not Given Calcium Carbonate/Cholecalciferol (Os-Pedro 500+D -) 1 tab PO BID [facility] Last Admin: 09/04/17 21:34 Dose: 1 tab Docusate Sodium (Colace -) 100 mg PO DAILY [facility] Last Admin: 09/04/17 10:12 Dose: 100 mg Enoxaparin Sodium (Lovenox -) 40 mg SQ DAILY [facility] Last Admin: 09/04/17 10:12 Dose: 40 mg Ferrous Sulfate (Feosol -) 325 mg PO DAILY@0800 [facility] Last Admin: 09/04/17 08:13 Dose: 325 mg Ondansetron HCl (Zofran Injection) 8 mg IVPB Q6H PRN PRN Reason: NAUSEA Ondansetron HCl (Zofran Injection) 4 mg IVPUSH Q6H PRN PRN Reason: NAUSEA AND/OR VOMITING Valsartan (Diovan -) 80 mg PO DAILY [facility] Last Admin: 09/04/17 10:12 Dose: 80 mg Vital Signs - 24 hr 09/04/17 09/04/17 09/04/17 02:00 05:41 14:11 Temperature 99.2 F 100.1 F H 98.8 F Pulse Rate 79 86 86 Respiratory 18 18 Rate Blood Pressure 115/55 111/53 09/04/17 09/04/17 09/04/17 14:30 19:12 20:11 Temperature 99.1 F 98.4 F 98.6 F Pulse Rate 93 H 88 78 Respiratory 20 20 Rate Blood Pressure 86/53 113/59 Intake & Output 09/02/17 09/03/17 09/04/17 09/05/17 07:59 07:59 07:59 07:59 Intake Total 2035 1000 1510 Output Total 450 Balance 1585 1000 1510 Weight 95 lb 95 lb CBC, BMP 09/04/17 08:05 09/04/17 08:05
[2017-09-05 09:03] LABS: HEMATOCRIT 28.3 % (32.4-45.2); HEMOGLOBIN 9.4 GM/dL (10.7-15.3); MCH 29.5 pg (25.7-33.7); MCHC 33.3 g/dl (32.0-36.0); MEAN CELL VOLUME 88.4 fl (80-96); MEAN PLT VOLUME 10.1 fl (7.5-11.1); PLATELET COUNT 160 K/MM3 (134-434); RDW 13.4 % (11.6-15.6); WHITE BLOOD COUNT 9.7 K/mm3 (4.0-10.0)
[2017-09-05] MEDS: VALSARTAN 80 MG TABLET (UD) PO SCH (10:09)
[2017-09-05] MEDS: amLODIPine BESYLATE 2.5 MG TABLET (FP) PO SCH (10:09)
[2017-09-05] MEDS: DOCUSATE SODIUM 100 MG CAPSULE (FP) PO SCH (10:09)
[2017-09-05] MEDS: CALCIUM 500MG/VIT-D 200 UNITS COMBO TABLET (FP) PO SCH (10:09)
[2017-09-05] MEDS: FERROUS SO4 325 MG TABLET (FP) PO SCH (10:09)
[2017-09-05] MEDS: ENOXAPARIN NA (PORCINE) 40 MG/0.4 ML DISP.SYRIN SQ SCH (10:10)
--- NOTE | 2017-09-05 10:54 | DS ---
Physical Examination Vital Signs: Vital Signs Temperature 98.3 F 09/05/17 05:04 Pulse Rate 79 09/05/17 05:04 Respiratory Rate 18 09/05/17 05:04 Blood Pressure 102/52 09/05/17 05:04 O2 Sat by Pulse Oximetry (%) 95 09/03/17 09:00 Constitutional: Yes: Mild Distress Eyes: Yes: WNL HENT: Yes: WNL Neck: Yes: WNL Cardiovascular: Yes: WNL Respiratory: Yes: WNL Gastrointestinal: Yes: WNL Renal/: Yes: WNL Musculoskeletal: Yes: Muscle Weakness Extremities: Yes: WNL Edema: No Peripheral Pulses WNL: Yes Integumentary: Yes: Other Wound/Incision: Yes: Dressing Dry and Intact Neurological: Yes: WNL ...Motor Strength: LLE Psychiatric: Yes: WNL Labs: CBC, BMP 09/05/17 08:35 09/04/17 08:05 Discharge Summary Reason For Visit: FRACTURE OF HIP Current Active Problems Hip fracture (Acute) Hypertension (Acute) Lipidemia (Acute) Tobacco dependence due to cigarettes (Acute) Procedures: Principal: left hip surgery gammanail Hospital Course: admitted s/p fall left hip fracture, left hip gammanail inserted for repair, transfused 1 unit prbc, will need aggressive PT and incentive spirometry. check cbc Condition: Stable - Instructions Diet, Activity, Other Instructions: low fat/sodium check cbc q weekly Disposition: [facility] - Home Medications Comprehensive Discharge Medication List: Ambulatory Orders Amlodipine Besylate 5 mg PO DAILY 09/01/17 Olmesartan/Hydrochlorothiazide [Benicar Hct 20-12.5MG Tab] 1 tab PO DAILY Rosuvastatin Calcium [Crestor] 5 mg PO HS 09/01/17
--- NOTE | 2017-09-05 14:07 | PN ---
Progress Note, Physician History of Present Illness: OOB in chair No c/o hip pain No fever/ chills Afebrile WBC WNL BC no growth - Current Medication List Current Medications: Active Medications Acetaminophen (Tylenol -) 650 mg PO Q6H PRN PRN Reason: FEVER OR PAIN Last Admin: 09/04/17 19:52 Dose: 650 mg Acetaminophen/Codeine Phosphate (Tylenol # 3 -) 1 tab PO Q4H PRN PRN Reason: FEVER OR PAIN Amlodipine Besylate (Norvasc -) 2.5 mg PO DAILY [facility] Last Admin: 09/05/17 10:09 Dose: 2.5 mg Calcium Carbonate/Cholecalciferol (Os-Pedro 500+D -) 1 tab PO BID [facility] Last Admin: 09/05/17 10:09 Dose: 1 tab Docusate Sodium (Colace -) 100 mg PO DAILY [facility] Last Admin: 09/05/17 10:09 Dose: 100 mg Enoxaparin Sodium (Lovenox -) 40 mg SQ DAILY [facility] Last Admin: 09/05/17 10:10 Dose: 40 mg Ferrous Sulfate (Feosol -) 325 mg PO DAILY@0800 [facility] Last Admin: 09/05/17 10:09 Dose: 325 mg Ondansetron HCl (Zofran Injection) 8 mg IVPB Q6H PRN PRN Reason: NAUSEA Ondansetron HCl (Zofran Injection) 4 mg IVPUSH Q6H PRN PRN Reason: NAUSEA AND/OR VOMITING Valsartan (Diovan -) 80 mg PO DAILY [facility] Last Admin: 09/05/17 10:09 Dose: 80 mg - Objective Vital Signs: Vital Signs Temperature 98.3 F 09/05/17 05:04 Pulse Rate 82 09/05/17 09:00 Respiratory Rate 18 09/05/17 09:00 Blood Pressure 90/50 09/05/17 09:00 O2 Sat by Pulse Oximetry (%) 95 09/03/17 09:00 Constitutional: Yes: No Distress Eyes: Yes: Conjunctiva Clear Cardiovascular: Yes: Regular Rate and Rhythm, S1, S2 Respiratory: Yes: CTA Bilaterally Gastrointestinal: Yes: Normal Bowel Sounds, Soft. No: Tenderness Labs: CBC, BMP 09/05/17 08:35 09/04/17 08:05 INR, PTT INR 0.93 (0.82-1.09) 09/01/17 20:58 Assessment/Plan POD #3 gamma nail fixation L femur fracture Fever/ leukocytosis- resolved Observe off antibiotics
--- NOTE | 2017-09-05 15:55 | PN ---
Progress Note (short form) - Note Progress Note: Pt lying in bed. Pain controlled. Last Vital Signs Temp Pulse Resp BP Pulse Ox 98.3 F 82 18 90/50 95 09/05/17 05:04 09/05/17 09:00 09/05/17 09:00 09/05/17 09:00 09/03/17 09:00 LLE dressings cdi calves soft nt ehl fhl ta g s intact sens int to LT 2+ dp Abnormal Lab Results 09/05/17 08:35 RBC 3.20 L Hgb 9.4 L D Hct 28.3 L D A/p: POD 3 L femoral nail -pain control, minimize narcotics as much as possible -dvt proph -oob/rehab -orthopedically stable for dc
[2017-09-05 19:29] VITALS: BP 96/55; PULSE 95; TEMP 100.6
--- NOTE | 2017-09-16 15:46 | PN ---
Progress Note (short form) - Note Progress Note: ADDENDUM: ACUTE BLOOD LOSS ANEMIA TRANSFUSED PRBC Problem List - Problems (1) Hypertension Code(s): I10 - ESSENTIAL (PRIMARY) HYPERTENSION Qualifiers: Hypertension type: essential hypertension Qualified Code(s): I10 - Essential (primary) hypertension (2) Lipidemia Code(s): E78.5 - HYPERLIPIDEMIA, UNSPECIFIED (3) Tobacco dependence due to cigarettes Code(s): F17.210 - NICOTINE DEPENDENCE, CIGARETTES, UNCOMPLICATED (4) Hip fracture Code(s): S72.009A - FRACTURE OF UNSP PART OF NECK OF UNSP FEMUR, INIT Qualifiers: Laterality: left
== END 2017-09-05 19:55 | DRG 481 ==
LOC: JER 18:49 → JERBED 21:52 → J6S 09-02 20:44
PROVIDERS: ADMIT Family Medicine; ATTEND Family Medicine
PROC: 0QS706Z Reposition Left Upper Femur with Intramedullary Internal Fixation Device, Open Approach (ICD-10-PCS; principal; 2017-09-02 16:00)
PROC: 30233N1 Transfusion of Nonautologous Red Blood Cells into Peripheral Vein, Percutaneous Approach (ICD-10-PCS; 2017-09-04)
DX: S72.145A Nondisplaced intertrochanteric fracture of left femur, initial encounter for closed fracture (principal); D62 Acute posthemorrhagic anemia; E78.5 Hyperlipidemia, unspecified; I10 Essential (primary) hypertension; I65.22 Occlusion and stenosis of left carotid artery; M81.8 Other osteoporosis without current pathological fracture; D72.828 Other elevated white blood cell count; R50.9 Fever, unspecified; F17.200 Nicotine dependence, unspecified, uncomplicated; W00.0XXA Fall on same level due to ice and snow, initial encounter; Y93.9 Activity, unspecified; Y92.89 Other specified places as the place of occurrence of the external cause; Y99.8 Other external cause status
CPT/HCPCS: 36415; 36430; 36511; 71010-TC; 73030-TC-LT; 73070-TC-LT; 73523-TC; 76000-TC; 80048; 80053; 81003; 81015; 83735; 85025; 85027; 85610; 86850; 86900; 86901; 86922; 87040; 87086; 87804; 93005; 93010; 93306-TC; 93880-TC; 94760; 97116-GP; 97161-GP; 99285-25; P9038; P9058

== ENCOUNTER 2024-05-05 10:17 | Emergency (ER) | payer BC ==
[2024-05-05 10:36] VITALS: RESP 18; BMI 18.3
[2024-05-05 11:28] LABS: HEMATOCRIT 29.4 % (32.4-45.2); HEMOGLOBIN 9.3 G/dL (10.7-15.3); MCH 28.2 pg (25.7-33.7); MCHC 31.5 g/dl (32.0-36.0); MEAN CELL VOLUME 89.7 fl (80-96); MEAN PLT VOLUME 9.2 fl (7.5-11.1); PLATELET COUNT 422.3 10^3/uL (134-434); RBC 3.28 10^6/uL (3.60-5.2); RDW 14.9 % (11.6-15.6)
[2024-05-05 11:36] LABS: ALBUMIN 3.6 g/dl (3.4-5.0); BILIRUBIN,TOTAL 1.2 mg/dl (0.2-1); CALCIUM 9.1 mg/dl (8.5-10.1); CREATININE 1.3 mg/dl (0.6-1.3); POTASSIUM 3.6 mmol/L (3.5-5.1); TOT PROT 6.3 g/dl (6.4-8.2)
[2024-05-05 12:02] LABS: PLATELET ESTIMATE INCREASED
[2024-05-05 12:03] LABS: ANISOCYTOSIS 1+
[2024-05-05 12:04] LABS: EPITHELIAL CELLS 0-5 /hpf
[2024-05-05] MEDS ORDERED: ACETAMINOPHEN INJECTION 100 ML ONE (12:32)
[2024-05-05] MEDS: ACETAMINOPHEN 1000 MG/100 ML BAG IVPB ONE (12:37)
[2024-05-05 15:18] VITALS: BP 96/51; PULSE 88
[2024-05-05 16:59] VITALS: TEMP 99.1
== END 2024-05-05 16:00 | disposition short-term general hospital (02) ==
LOC: FER 10:17 → UNDOADMIN 12:58 → FM/S 12:58 → UNDODISIN 16:20
PROC: 3E033NZ Introduction of Analgesics, Hypnotics, Sedatives into Peripheral Vein, Percutaneous Approach (ICD-10-PCS; principal; 2024-05-05)
DX: S82.142A Displaced bicondylar fracture of left tibia, initial encounter for closed fracture (principal); W01.0XXA Fall on same level from slipping, tripping and stumbling without subsequent striking against object, initial encounter; Z20.822 Contact with and (suspected) exposure to COVID-19
CPT/HCPCS: 0241U-QW; 36415; 70450-TC; 71045-TC-FY; 72125-TC; 73502-TC-LT-FY; 73562-TC-LT-FY; 73590-TC-LT-FY; 73700-TC-RT; 80053; 81003; 81015; 82550; 82553; 84484; 85027; 87086; 93005; 99285-25; J0131